=== PATIENT | male | born 1965 | race Caucasian/White ===

== ENCOUNTER 2018-05-05 12:04 | Emergency (ER) | payer MEDICAID ==
[~2018-05-05] VITALS: Ht 172.7 cm; Wt 88.0 kg
[~2018-05-05 12:04] MED LIST: BENZ-49 PO; GUAI120015 PO; MUPI15CR12 TOP; ONDA4TAB12 PO
[2018-05-05 12:09] VITALS: BP 131/92
[2018-05-05] MEDS ORDERED: ORPH100T2 PO (12:35)
[2018-05-05] MEDS ORDERED: ketorolac trometh inj. 60 MG/2 ML VIAL IM ONE (12:35)
[2018-05-05] MEDS ORDERED: ketorolac trometh. 30mg/ml inj. IM ONE (12:40)
== END 2018-05-05 13:19 | disposition home or self-care (01) ==
LOC: ER 12:05
DX: G89.29 Other chronic pain (principal); M54.6 Pain in thoracic spine; F12.90 Cannabis use, unspecified, uncomplicated; F17.210 Nicotine dependence, cigarettes, uncomplicated; Z79.899 Other long term (current) drug therapy; Z88.6 Allergy status to analgesic agent; Z88.5 Allergy status to narcotic agent
CPT/HCPCS: 96372; 99283; J1885

== ENCOUNTER 2018-05-11 10:01 | Emergency (ER) | payer MEDICAID ==
[~2018-05-11] VITALS: Ht 172.7 cm; Wt 75.0 kg
[~2018-05-11 10:01] MED LIST changes: +ORPH100T2 PO
[2018-05-11 10:16] VITALS: BP 158/108
[2018-05-11] MEDS ORDERED: VAL5T PO (10:36)
[2018-05-11] MEDS ORDERED: METH500T PO (10:36)
== END 2018-05-11 11:06 | disposition home or self-care (01) ==
LOC: ER 10:02
DX: S29.012A Strain of muscle and tendon of back wall of thorax, initial encounter (principal); M62.830 Muscle spasm of back; G89.29 Other chronic pain; F12.90 Cannabis use, unspecified, uncomplicated; Z88.5 Allergy status to narcotic agent; Z88.6 Allergy status to analgesic agent; Z79.899 Other long term (current) drug therapy; X58.XXXA Exposure to other specified factors, initial encounter; Y93.89 Activity, other specified; Y92.89 Other specified places as the place of occurrence of the external cause; Y99.8 Other external cause status
CPT/HCPCS: 99284

== ENCOUNTER 2018-05-13 03:17 | Emergency (ER) | payer MEDICAID ==
[~2018-05-13] VITALS: Ht 172.7 cm; Wt 75.0 kg
[~2018-05-13 03:17] MED LIST changes: +METH500T PO; +VAL5T PO
[2018-05-13] MEDS ORDERED: ketorolac tromethamine 15mg/ml inj. IM ONE (03:25)
[2018-05-13] MEDS ORDERED: METH4TAB3 PO (03:34)
[2018-05-13] MEDS ORDERED: dexamethasone 4mg tablet PO ONE (03:35)
--- NOTE | 2018-05-13 03:44 | NUR ---
Patient screaming and yelling and slamming gurney. Patient states, "my friends will be here to have my back shortly. The [employer] don't mess around." I asked the patient what he meant by this and he states, "don't worry about it. They have been here before. They ask all the questions and will investigate what is going on here." All efforts to de-escalate the patient were unsuccessful. Patient is wearing weather appropriate clothing. Patient declines snack to go. Patient given taxi ride to the [facility] [address] , even though [facility] [place].
[2018-05-13 03:46] VITALS: BP 107/57
== END 2018-05-13 03:48 | disposition home or self-care (01) ==
LOC: ER 03:17
DX: S29.012D Strain of muscle and tendon of back wall of thorax, subsequent encounter (principal); G89.29 Other chronic pain; F12.90 Cannabis use, unspecified, uncomplicated; Z88.5 Allergy status to narcotic agent; Z88.8 Allergy status to other drugs, medicaments and biological substances; Z79.899 Other long term (current) drug therapy; X58.XXXD Exposure to other specified factors, subsequent encounter
CPT/HCPCS: 96372; 99283; J1885; J8540